=== PATIENT | female | born 1980 | race Caucasian/White ===

== ENCOUNTER 2017-03-12 17:26 | Emergency (ER) | payer MEDICAID ==
[~2017-03-12] VITALS: Ht 165.1 cm; Wt 103.1 kg
[2017-03-12] MEDS ORDERED: ONDANSETRON 2MG/ML, 2ML ONE (17:51)
[2017-03-12] MEDS ORDERED: ONDANSETRON 2MG/ML, 2ML IVPush ONE (18:00)
[2017-03-12] MEDS ORDERED: SODIUM CHLORIDE FLUSH 10ML SYR IVF ONE (18:00)
[2017-03-12] MEDS ORDERED: SODIUM CHLORIDE 0.9% 1,000ML IVBOLUS ONE (18:00)
[2017-03-12 18:21] LABS: BLOOD UREA NITROGEN 13 mg/dL (7-18)
[2017-03-12 20:03] VITALS: BP 113/60
== END 2017-03-12 20:05 | disposition home or self-care (01) ==
LOC: ED 19:27
DX: R55 Syncope and collapse (principal); E86.0 Dehydration; F17.200 Nicotine dependence, unspecified, uncomplicated
CPT/HCPCS: 36415; 80048; 81001; 82010; 82040; 82800; 83036; 83880; 84703; 85025; 87086; 93005; 96361; 96374; 99285; J2405; J7030

== ENCOUNTER 2017-11-03 22:25 | Emergency (ER) | payer MEDICAID ==
[~2017-11-03] VITALS: Ht 165.1 cm; Wt 107.2 kg
[2017-11-03 23:58] LABS: BASOPHILS # (AUTO) 0.04 x10^3/uL (0-0.1); BASOPHILS % (AUTO) 0 % (0-1); EOSINOPHILS % (AUTO) 3 % (1-7); LYMPHOCYTES # (AUTO) 3.95 x10^3/uL (1-3.4); LYMPHOCYTES % (AUTO) 37 % (22-44); MD NO; MEAN CORPUSCULAR HEMOGLOBIN 29.3 pg (27.0-34.8); MEAN CORPUSCULAR HGB CONC 33.9 g/dL (32.4-35.8); MEAN CORPUSCULAR VOLUME 86.5 fL (80-100); MEAN PLATELET VOLUME 9.2 fL (7.4-10.4); MONOCYTES # (AUTO) 0.69 x10^3/uL (0.2-0.8); MONOCYTES % (AUTO) 6 % (2-9); NEUTROPHILS # (AUTO) 5.75 x10^3/uL (1.8-6.8); NEUTROPHILS % (AUTO) 54 % (42-75); PLATELET COUNT 264 x10^3/uL (130-400); RED BLOOD COUNT 5.06 x10^6/uL (3.82-5.3); RED CELL DISTRIBUTION WIDTH 12.5 % (9.6-15.2)
[2017-11-04 00:10] LABS: ALBUMIN 3.6 g/dL (3.4-5.0); ANION GAP 6 mmol/L (5-15); CALCIUM 8.4 mg/dL (8.5-10.1); CHLORIDE 110 mmol/L (98-107)
[2017-11-04 00:15] LABS: CREATININE 0.81 mg/dL (0.55-1.02)
[2017-11-04 00:30] VITALS: BP 137/70
[2017-11-04 00:46] LABS: MICROSCOPIC INDICATED
[2017-11-04 00:54] LABS: CULTURE INDICATED? NO
[2017-11-04] MEDS ORDERED: ONDANSETRON ODT 4 MG ONE (01:14)
[2017-11-04] MEDS ORDERED: ONDANSETRON ODT 4 MG PO ONE (01:30)
== END 2017-11-04 01:46 | disposition home or self-care (01) ==
LOC: ED 23:59
DX: R10.30 Lower abdominal pain, unspecified (principal); I10 Essential (primary) hypertension; Z90.49 Acquired absence of other specified parts of digestive tract; F17.200 Nicotine dependence, unspecified, uncomplicated
CPT/HCPCS: 36415; 76830; 80048; 81001; 82040; 84703; 85025; 99285; Q0162

== ENCOUNTER 2018-05-17 09:38 | Emergency (ER) | payer MEDICAID ==
[~2018-05-17] VITALS: Ht 165.1 cm; Wt 113.1 kg
[2018-05-17] MEDS ORDERED: PREN1TAB28 PO (09:51)
[2018-05-17] MEDS ORDERED: LORA10TA62 PO (09:51)
[2018-05-17] MEDS ORDERED: OMEP20TA62 PO (09:51)
[2018-05-17] MEDS ORDERED: SODIUM CHLORIDE 0.9% 1,000 ML IV ONE (09:51)
[2018-05-17] MEDS ORDERED: ONDANSETRON ODT 4 MG ONE (09:57)
[2018-05-17] MEDS ORDERED: MAALOX/HYOSCYAMINE/LIDOCAINE 45 ML BTL ONE (09:57)
[2018-05-17] MEDS ORDERED: FAMOTIDINE 20 MG TABLET ONE (09:57)
[2018-05-17] MEDS ORDERED: FAMOTIDINE 20 MG/2 ML IVP ONE (10:00)
[2018-05-17] MEDS ORDERED: ONDANSETRON 2MG/ML, 2ML IVPush ONE (10:00)
[2018-05-17] MEDS ORDERED: SODIUM CHLORIDE 0.9% 1,000ML IVBOLUS ONE (10:00)
[2018-05-17] MEDS ORDERED: FAMOTIDINE 20 MG TABLET PO ONE (10:00)
[2018-05-17] MEDS ORDERED: MAALOX/HYOSCYAMINE/LIDOCAINE 45 ML BTL PO ONE (10:00)
[2018-05-17 10:20] LABS: MICROSCOPIC AUTO
[2018-05-17 10:25] LABS: CULTURE INDICATED? YES
[2018-05-17 10:38] LABS: BASOPHILS # (AUTO) 0.07 x10^3/uL (0-0.1); BASOPHILS % (AUTO) 1 % (0-1); EOSINOPHILS # (AUTO) 0.36 x10^3/uL (0-0.4); EOSINOPHILS % (AUTO) 3 % (1-7); LYMPHOCYTES # (AUTO) 3.52 x10^3/uL (1-3.4); LYMPHOCYTES % (AUTO) 30 % (22-44); MD NO; MEAN CORPUSCULAR HEMOGLOBIN 29.1 pg (27.0-34.8); MEAN CORPUSCULAR HGB CONC 34.2 g/dL (32.4-35.8); MEAN CORPUSCULAR VOLUME 85.1 fL (80-100); MEAN PLATELET VOLUME 9.3 fL (7.4-10.4); MONOCYTES # (AUTO) 0.54 x10^3/uL (0.2-0.8); MONOCYTES % (AUTO) 5 % (2-9); NEUTROPHILS # (AUTO) 7.45 x10^3/uL (1.8-6.8); NEUTROPHILS % (AUTO) 62 % (42-75); PLATELET COUNT 241 x10^3/uL (130-400); RED BLOOD COUNT 4.91 x10^6/uL (3.82-5.3); RED CELL DISTRIBUTION WIDTH 13.6 % (9.6-15.2)
[2018-05-17 10:50] LABS: ALANINE AMINOTRANSFERASE 67 U/L (12-78); ALBUMIN 3.4 g/dL (3.4-5.0); ANION GAP 9 mmol/L (5-15); CALCIUM 8.4 mg/dL (8.5-10.1); CHLORIDE 104 mmol/L (98-107); CREATININE 0.71 mg/dL (0.55-1.02)
[2018-05-17 10:55] LABS: ALKALINE PHOSPHATASE 78 U/L (45-117); BILIRUBIN,TOTAL 0.4 mg/dL (0.2-1.0); TOTAL PROTEIN 7.2 g/dL (6.4-8.2)
[2018-05-17 11:03] VITALS: BP 134/76
== END 2018-05-17 12:02 | disposition home or self-care (01) ==
LOC: ED 10:22
DX: K29.00 Acute gastritis without bleeding (principal); I10 Essential (primary) hypertension
CPT/HCPCS: 36415; 76700; 80053; 81001; 83690; 84703; 85025; 87086; 99285

== ENCOUNTER 2018-10-26 14:21 | Emergency (ER) | payer MEDICAID ==
[~2018-10-26] VITALS: Ht 162.6 cm; Wt 109.0 kg
[~2018-10-26 14:21] MED LIST: LORA10TA62 PO; OMEP20TA62 PO; PREN1TAB28 PO
[2018-10-26] MEDS ORDERED: FAMOTIDINE 20 MG/2 ML IVP ONE (15:00)
[2018-10-26] MEDS ORDERED: ONDANSETRON 2MG/ML, 2ML IVPush ONE (15:00)
[2018-10-26] MEDS ORDERED: SODIUM CHLORIDE FLUSH 10ML SYR IVF ONE (15:00)
[2018-10-26 15:07] LABS: BASOPHILS # (AUTO) 0.04 x10^3/uL (0-0.1); BASOPHILS % (AUTO) 0 % (0-1); EOSINOPHILS # (AUTO) 0.35 x10^3/uL (0-0.4); EOSINOPHILS % (AUTO) 3 % (1-7); LYMPHOCYTES # (AUTO) 3.21 x10^3/uL (1-3.4); LYMPHOCYTES % (AUTO) 30 % (22-44); MD NO; MEAN CORPUSCULAR HEMOGLOBIN 29.4 pg (27.0-34.8); MEAN CORPUSCULAR HGB CONC 33.6 g/dL (32.4-35.8); MEAN CORPUSCULAR VOLUME 87.4 fL (80-100); MEAN PLATELET VOLUME 9.4 fL (7.4-10.4); MONOCYTES # (AUTO) 0.45 x10^3/uL (0.2-0.8); MONOCYTES % (AUTO) 4 % (2-9); NEUTROPHILS # (AUTO) 6.54 x10^3/uL (1.8-6.8); NEUTROPHILS % (AUTO) 62 % (42-75); PLATELET COUNT 269 x10^3/uL (130-400); RED CELL DISTRIBUTION WIDTH 12.9 % (9.6-15.2)
[2018-10-26 15:12] LABS: ALANINE AMINOTRANSFERASE 37 U/L (12-78); ALBUMIN 3.7 g/dL (3.4-5.0); ANION GAP 6 mmol/L (5-15); CALCIUM 8.5 mg/dL (8.5-10.1); CHLORIDE 105 mmol/L (98-107)
[2018-10-26 15:17] LABS: ALKALINE PHOSPHATASE 90 U/L (45-117); BILIRUBIN,TOTAL 0.3 mg/dL (0.2-1.0); TOTAL PROTEIN 7.7 g/dL (6.4-8.2)
[2018-10-26 15:28] LABS: MICROSCOPIC NOT IND
[2018-10-26] MEDS ORDERED: MORPHINE SULFATE 4 MG/ML, 1ML IVPush ONE (15:30)
[2018-10-26] MEDS ORDERED: MORPHINE SULFATE 4 MG/ML, 1ML ONE (15:32)
[2018-10-26] MEDS ORDERED: ONDANSETRON 2MG/ML, 2ML ONE (15:32)
[2018-10-26] MEDS ORDERED: MAALOX/HYOSCYAMINE/LIDOCAINE 45 ML BTL ONE (15:32)
[2018-10-26] MEDS ORDERED: FAMOTIDINE 20 MG/2 ML ONE (15:33)
[2018-10-26 15:35] LABS: CULTURE INDICATED? NO
--- NOTE | 2018-10-26 15:39 | NUR ---
PT COMPLAINS OF RUQ PAIN X 2 DAYS. DENIES NAUSEA/VOMITING. STATES SHE HAS HAD DIARRHEA X 2 WEEKS. HAD THIS PAIN A COUPLE WEEKS AGO BUT DID NOT GET SEEN FOR IT. PT ALSO STATES THAT THE PAIN GETS WORSE AFTER EATING BUT CANNOT PINPOINT ANY RELATION TO WHAT FOOD CAUSES THE PAIN OR IF IT IS ALL FOOD. PLACE ON CONT. SPO2 AND BP MONITOR. VSS.
--- NOTE | 2018-10-26 15:42 | NUR ---
US AT BEDSIDE
--- NOTE | 2018-10-26 15:42 | NUR ---
PT MEDICATED PER EMAR
[2018-10-26] MEDS ORDERED: MAALOX/HYOSCYAMINE/LIDOCAINE 45 ML BTL PO ONE (16:00)
[2018-10-26 16:56] VITALS: BP 128/72
== END 2018-10-26 17:33 | disposition home or self-care (01) ==
LOC: ED 15:44
DX: K21.9 Gastro-esophageal reflux disease without esophagitis (principal); K29.70 Gastritis, unspecified, without bleeding; I10 Essential (primary) hypertension; Z90.89 Acquired absence of other organs
CPT/HCPCS: 36415; 76700; 80053; 81003; 83690; 84703; 85025; 96374; 96375; 99284; J2405; J3490

== ENCOUNTER 2018-11-24 10:49 | Emergency (ER) | payer MEDICAID ==
[~2018-11-24] VITALS: Ht 162.6 cm; Wt 108.9 kg
[2018-11-24 11:37] LABS: HCG UR SG 1.023 (1.003-1.030); MICROSCOPIC AUTO
--- NOTE | 2018-11-24 12:00 | NUR ---
HUMAN RESOURCES TEMP: PT TO ROOM FROM [facility]
[2018-11-24 12:04] LABS: BASOPHILS # (AUTO) 0.03 x10^3/uL (0-0.1); BASOPHILS % (AUTO) 0 % (0-1); EOSINOPHILS % (AUTO) 3 % (1-7); LYMPHOCYTES % (AUTO) 31 % (22-44); MD NO; MEAN CORPUSCULAR HEMOGLOBIN 28.9 pg (27.0-34.8); MEAN CORPUSCULAR VOLUME 87.8 fL (80-100); MEAN PLATELET VOLUME 9.6 fL (7.4-10.4); MONOCYTES # (AUTO) 0.58 x10^3/uL (0.2-0.8); MONOCYTES % (AUTO) 6 % (2-9); NEUTROPHILS % (AUTO) 60 % (42-75); PLATELET COUNT 263 x10^3/uL (130-400); RED BLOOD COUNT 5.09 x10^6/uL (3.82-5.3)
[2018-11-24 12:15] LABS: ALBUMIN 3.6 g/dL (3.4-5.0); ANION GAP 6 mmol/L (5-15); CALCIUM 8.3 mg/dL (8.5-10.1); CHLORIDE 110 mmol/L (98-107)
[2018-11-24 12:20] LABS: ALANINE AMINOTRANSFERASE 39 U/L (12-78); ALKALINE PHOSPHATASE 82 U/L (45-117); BILIRUBIN,TOTAL 0.3 mg/dL (0.2-1.0); CREATININE 0.66 mg/dL (0.55-1.02); TOTAL PROTEIN 7.2 g/dL (6.4-8.2)
[2018-11-24] MEDS ORDERED: HYDROcodone/APAP 5/325 TABLET PO ONE (12:30)
[2018-11-24] MEDS ORDERED: KETOROLAC 30 MG/1 ML IM ONE (12:30)
[2018-11-24] MEDS ORDERED: KETOROLAC 30 MG/1 ML ONE (12:41)
[2018-11-24 12:55] VITALS: BP 146/110
--- NOTE | 2018-11-24 12:56 | NUR ---
PT RESTING ON [facility]. MEDICATED PER MAR BY BREAK RN. KEARNEY.
--- NOTE | 2018-11-24 13:19 | NUR ---
PT CHART REVIEWED AND PLACED FOR RECHECK.
== END 2018-11-24 13:38 | disposition home or self-care (01) ==
LOC: ED 13:29
DX: R10.9 Unspecified abdominal pain (principal); K21.9 Gastro-esophageal reflux disease without esophagitis; I10 Essential (primary) hypertension
CPT/HCPCS: 36415; 74176; 80053; 81001; 81025; 83690; 85025; 96372; 99284; J1885

== ENCOUNTER 2018-12-20 13:58 | Emergency (ER) | payer MEDICAID ==
[~2018-12-20] VITALS: Ht 162.6 cm; Wt 106.5 kg
[2018-12-20 14:41] LABS: BASOPHILS # (AUTO) 0.02 x10^3/uL (0-0.1); BASOPHILS % (AUTO) 0 % (0-1); EOSINOPHILS # (AUTO) 0.16 x10^3/uL (0-0.4); EOSINOPHILS % (AUTO) 2 % (1-7); LYMPHOCYTES # (AUTO) 1.66 x10^3/uL (1-3.4); LYMPHOCYTES % (AUTO) 23 % (22-44); MD NO; MEAN CORPUSCULAR HEMOGLOBIN 29.4 pg (27.0-34.8); MEAN CORPUSCULAR HGB CONC 33.8 g/dL (32.4-35.8); MEAN PLATELET VOLUME 9.3 fL (7.4-10.4); MONOCYTES # (AUTO) 0.58 x10^3/uL (0.2-0.8); MONOCYTES % (AUTO) 8 % (2-9); NEUTROPHILS # (AUTO) 4.78 x10^3/uL (1.8-6.8); NEUTROPHILS % (AUTO) 66 % (42-75); PLATELET COUNT 228 x10^3/uL (130-400); RED BLOOD COUNT 5.31 x10^6/uL (3.82-5.3)
[2018-12-20 14:49] LABS: ALANINE AMINOTRANSFERASE 33 U/L (12-78); ALBUMIN 3.6 g/dL (3.4-5.0); ANION GAP 6 mmol/L (5-15); CALCIUM 7.9 mg/dL (8.5-10.1); CHLORIDE 111 mmol/L (98-107)
[2018-12-20 14:54] LABS: ALKALINE PHOSPHATASE 90 U/L (45-117); BILIRUBIN,TOTAL 0.4 mg/dL (0.2-1.0); TOTAL PROTEIN 7.5 g/dL (6.4-8.2)
--- NOTE | 2018-12-20 16:42 | NUR ---
PT TO ROOM FROM LOBBY
[2018-12-20] MEDS ORDERED: ONDANSETRON ODT 4 MG PO ONE (17:30)
[2018-12-20] MEDS ORDERED: MAALOX/HYOSCYAMINE/LIDOCAINE 45 ML BTL PO ONE (17:30)
--- NOTE | 2018-12-20 17:31 | NUR ---
ASSUMED CARE OF PT. PT PRESENTS TO ED FOR EPIGASTRIC PAIN WITH N/V TODAY. STATES LOTS OF ACID REFULX TODAY. PT SEEN IN PIT. LABS RESULTED. PT MEDICATED PER NOV. RIGHTS VERIFIED PRIOR. 3P'S ADDRESSED. MILD AMOUNT OF DISTRESS AND DISCOMFORT NOTED. BREATHING REGULAR AND UNLABORED. POC DISCUSSED. WILL CONTINUE TO MONITOR.
--- NOTE | 2018-12-20 18:25 | NUR ---
PT AMBULATED TO D/C WITH STEADY GAIT.
[2018-12-20 18:43] VITALS: BP 137/67
== END 2018-12-20 18:44 | disposition home or self-care (01) ==
LOC: ED 17:58
DX: K52.9 Noninfective gastroenteritis and colitis, unspecified (principal)
CPT/HCPCS: 36415; 80053; 83690; 84703; 85025; 99283

== ENCOUNTER 2019-01-07 09:34 | Emergency (ER) | payer MEDICAID ==
[~2019-01-07] VITALS: Ht 162.6 cm; Wt 107.0 kg
[2019-01-07 09:39] VITALS: BP 143/99
== END 2019-01-07 10:26 | disposition home or self-care (01) ==
LOC: ED 09:51
DX: L23.9 Allergic contact dermatitis, unspecified cause (principal); F17.200 Nicotine dependence, unspecified, uncomplicated; K21.9 Gastro-esophageal reflux disease without esophagitis; I10 Essential (primary) hypertension
CPT/HCPCS: 99283

== ENCOUNTER 2019-09-08 11:23 | Emergency (ER) | payer MEDICAID ==
[~2019-09-08] VITALS: Ht 162.6 cm; Wt 109.5 kg
--- NOTE | 2019-09-08 12:25 | NUR ---
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
--- NOTE | 2019-09-08 12:43 | NUR ---
PT C/O LUQ, RUQ, AND BILATERAL FLANK PAIN 04/30. DENIES ANY URINARY S/S, BUT STATES THAT SHE WAS JUST TRAVELING FOR THE PAST FEW DAYS AND HAS BEEN HOLDING HER URINE FOR LONG PERIODS OF TIME, AND HAS NOT BEEN DRINKING MANY FLUIDS. STATES THAT THE PAIN HAS DEVELOPED SINCE THE TRIP FINISHED. DENIES ANY FEVER, N/V/D, PAIN WITH URINATION, OR OTHER CONCERNS. ATTACHED TO MONITORS. URINE COLELCTED AND SENT. CALL LIGHT IN REACH. PT DENIES ANY FURTHER NEEDS OR CONCERNS AT THIS TIME.
[2019-09-08] MEDS ORDERED: PHENAZOPYRIDINE 200 MG TABLET PO ONE (13:00)
[2019-09-08] MEDS ORDERED: PHENAZOPYRIDINE 200 MG TABLET ONE (13:07)
[2019-09-08 13:13] LABS: BASOPHILS # (AUTO) 0.03 x10^3/uL (0-0.1); BASOPHILS % (AUTO) 0 % (0-1); EOSINOPHILS # (AUTO) 0.25 x10^3/uL (0-0.4); EOSINOPHILS % (AUTO) 3 % (1-7); LYMPHOCYTES # (AUTO) 2.43 x10^3/uL (1-3.4); LYMPHOCYTES % (AUTO) 29 % (22-44); MD NO; MEAN CORPUSCULAR HEMOGLOBIN 29.7 pg (27.0-34.8); MEAN CORPUSCULAR HGB CONC 33.3 g/dL (32.4-35.8); MEAN CORPUSCULAR VOLUME 89.3 fL (80-100); MEAN PLATELET VOLUME 9.3 fL (7.4-10.4); MONOCYTES # (AUTO) 0.34 x10^3/uL (0.2-0.8); MONOCYTES % (AUTO) 4 % (2-9); NEUTROPHILS # (AUTO) 5.48 x10^3/uL (1.8-6.8); NEUTROPHILS % (AUTO) 64 % (42-75); PLATELET COUNT 257 x10^3/uL (130-400); RED BLOOD COUNT 5.08 x10^6/uL (3.82-5.3); RED CELL DISTRIBUTION WIDTH 13.1 % (9.6-15.2)
[2019-09-08 13:21] LABS: MICROSCOPIC AUTO
[2019-09-08 13:23] LABS: ALANINE AMINOTRANSFERASE 40 U/L (12-78); ALBUMIN 3.6 g/dL (3.4-5.0); ANION GAP 7 mmol/L (5-15); CALCIUM 8.8 mg/dL (8.5-10.1); CHLORIDE 107 mmol/L (98-107)
[2019-09-08 13:23] LABS: CULTURE INDICATED? YES
[2019-09-08 13:26] LABS: ALKALINE PHOSPHATASE 78 U/L (45-117); BILIRUBIN,TOTAL 0.4 mg/dL (0.2-1.0); CREATININE 0.66 mg/dL (0.55-1.02); TOTAL PROTEIN 7.3 g/dL (6.4-8.2)
--- NOTE | 2019-09-08 14:47 | NUR ---
PT RETURNED FROM IMAGING AT THIS TIME. DENIES ANY CURRENT NEEDS OR CONCERNS. CALL LIGHT IN REACH.
--- NOTE | 2019-09-08 15:06 | NUR ---
REPORT RECEIVED FROM TAMMI VENTURA. PLAN OF CARE DISCUSSED. PAITIENT COMPLAINING OF 10/10 PAIN. WILL DISCUSS WITH MD. CALL LIGHT IN REACH, FAMILY IN ROOM.
[2019-09-08 15:07] VITALS: BP 137/84
== END 2019-09-08 15:45 | disposition home or self-care (01) ==
LOC: ED 15:13
DX: R10.84 Generalized abdominal pain (principal); K59.00 Constipation, unspecified; R93.41 Abnormal radiologic findings on diagnostic imaging of renal pelvis, ureter, or bladder; K29.00 Acute gastritis without bleeding; I10 Essential (primary) hypertension
CPT/HCPCS: 36415; 74021; 76830; 80053; 81001; 83690; 84703; 85025; 87086; 99284

== ENCOUNTER 2019-09-15 20:09 | Emergency (ER) | payer MEDICAID ==
[~2019-09-15] VITALS: Ht 162.6 cm; Wt 110.8 kg
[2019-09-15 20:11] VITALS: BP 165/104
[2019-09-15] MEDS ORDERED: IBUPROFEN 200 MG TABLET ONE (20:38)
[2019-09-15] MEDS ORDERED: IBUPROFEN 200 MG TABLET PO ONE (21:00)
[2019-09-15 21:14] LABS: RAPID INFLUENZA A Negative (Negative); RAPID INFLUENZA B Negative (Negative)
== END 2019-09-15 21:37 | disposition home or self-care (01) ==
LOC: ED 21:28
DX: H66.002 Acute suppurative otitis media without spontaneous rupture of ear drum, left ear (principal); J18.0 Bronchopneumonia, unspecified organism; K21.9 Gastro-esophageal reflux disease without esophagitis; I10 Essential (primary) hypertension
CPT/HCPCS: 71046; 87400; 99284

== ENCOUNTER 2019-11-22 14:23 | Emergency (ER) | payer MEDICAID ==
[~2019-11-22] VITALS: Ht 162.6 cm; Wt 111.7 kg
[2019-11-22 15:24] VITALS: BP 125/77
--- NOTE | 2019-11-22 15:29 | NUR ---
Pt resting on gureny connected to NIBP cuff and continous pulse ox monitor. Call light within reach. NADN. No needs expressed. EDAPRN at bedside.
[2019-11-22] MEDS ORDERED: DEXAMETHASONE 4 MG TABLET ONE (15:57)
[2019-11-22] MEDS ORDERED: DEXAMETHASONE 4 MG TABLET PO ONE (16:00)
--- NOTE | 2019-11-22 16:04 | NUR ---
Patient given discharge instructions and they have confirmed that they understand the instructions. Patient ambulatory with steady gait. Pt left with Rx, D/C paperwork, and all personal belongings. NADN. No needs requested.
== END 2019-11-22 16:06 | disposition home or self-care (01) ==
LOC: ED 16:00
DX: J00 Acute nasopharyngitis [common cold] (principal); J30.2 Other seasonal allergic rhinitis; B34.9 Viral infection, unspecified; I10 Essential (primary) hypertension; K21.9 Gastro-esophageal reflux disease without esophagitis; Z90.49 Acquired absence of other specified parts of digestive tract
CPT/HCPCS: 99282; 99283

== ENCOUNTER 2021-01-25 12:05 | Emergency (ER) | payer MEDICAID ==
[~2021-01-25] VITALS: Ht 162.6 cm; Wt 114.0 kg
[~2021-01-25 12:05] MED LIST changes: +LORA-59 PO; -LORA10TA62 PO
[2021-01-25] MEDS ORDERED: ONDANSETRON 2MG/ML, 2ML IVPush ONE (12:30)
[2021-01-25] MEDS ORDERED: FAMOTIDINE 20 MG/2 ML IVPush ONE (12:30)
[2021-01-25] MEDS ORDERED: SODIUM CHLORIDE FLUSH 10ML SYR IVF ONE (12:30)
[2021-01-25] MEDS ORDERED: MAALOX/HYOSCYAMINE/LIDOCAINE 45 ML BTL PO ONE (12:30)
--- NOTE | 2021-01-25 12:32 | NUR ---
EKG IN TRIAGE
--- NOTE | 2021-01-25 13:35 | NUR ---
DINNER COOK: PT TO ROOM FROM LOBBY
[2021-01-25 13:58] LABS: BASOPHILS % (AUTO) 1 % (0-1); EOSINOPHILS % (AUTO) 2 % (1-7); LYMPHOCYTES % (AUTO) 30 % (22-44); MEAN CORPUSCULAR HEMOGLOBIN 29.1 pg (27.0-34.8); MEAN PLATELET VOLUME 9.2 fL (7.4-10.4); MONOCYTES % (AUTO) 7 % (2-9); NEUTROPHILS % (AUTO) 60 % (42-75); PLATELET COUNT 250 x10^3/uL (130-400); RED BLOOD COUNT 5.04 x10^6/uL (3.82-5.3); RED CELL DISTRIBUTION WIDTH 13.1 % (9.6-15.2)
[2021-01-25 13:59] LABS: MD NO
[2021-01-25] MEDS ORDERED: MAALOX/HYOSCYAMINE/LIDOCAINE 45 ML BTL ONE (14:10)
[2021-01-25] MEDS ORDERED: ONDANSETRON 2MG/ML, 2ML ONE (14:10)
[2021-01-25] MEDS ORDERED: FAMOTIDINE 20 MG/2 ML ONE (14:10)
[2021-01-25 14:11] LABS: ALBUMIN 3.7 g/dL (3.4-5.0); CALCIUM 8.8 mg/dL (8.5-10.1)
[2021-01-25 14:17] LABS: ALANINE AMINOTRANSFERASE 54 U/L (12-78); ALKALINE PHOSPHATASE 80 U/L (45-117); BILIRUBIN,TOTAL 0.4 mg/dL (0.2-1.0); CREATININE 0.71 mg/dL (0.55-1.02); TOTAL PROTEIN 7.9 g/dL (6.4-8.2); TROPONIN I < 0.015 ng/mL (0.000-0.045)
[2021-01-25 14:21] LABS: ANION GAP 9 mmol/L (5-15); CHLORIDE 107 mmol/L (98-107)
--- NOTE | 2021-01-25 14:27 | NUR ---
ASSUMED CARE OF PATIENT. PATIENT REPORTS ALL OVER ABD PAIN THAT CASTILLO. VS STABLE. NO ACUTE DISTRESS NOTED. PT SEEN BY DR LOPES. CALL LIGHT IN PLACE. WILL CONTINUE TO MONITOR.
--- NOTE | 2021-01-25 15:07 | NUR ---
PT RESTING IN ROOM. VS STABLE. NO ACUTE DISTRESS NOTED. CALL LIGHT IN PLACE. WILL CONTINUE TO MONITOR.
--- NOTE | 2021-01-25 15:17 | NUR ---
DR LOPES IN ROOM UPDATING PATIENT
[2021-01-25 15:33] VITALS: BP 154/80
== END 2021-01-25 15:36 | disposition home or self-care (01) ==
LOC: ED 14:10
DX: K29.00 Acute gastritis without bleeding (principal); I10 Essential (primary) hypertension; K21.9 Gastro-esophageal reflux disease without esophagitis
CPT/HCPCS: 36415; 71045; 76700; 80053; 83690; 84484; 84703; 85025; 93005; 96374; 96375; 99285; J2405

== ENCOUNTER 2021-04-03 10:42 | Emergency (ER) | payer MEDICAID ==
[~2021-04-03] VITALS: Ht 162.6 cm; Wt 110.7 kg
--- NOTE | 2021-04-03 10:45 | NUR ---
NO ANSWER TO TRIAGE FROM LOBBY.
[2021-04-03 11:30] LABS: MICROSCOPIC NOT IND
--- NOTE | 2021-04-03 11:57 | NUR ---
PATIENT WALKED BACK FROM [facility] WITH CHIEF C/O ABD PAIN X3 MONTHS. PATIENT REPORTS PAIN IS ACROSS UPPER ABD AND SPREADS TO HER BACK, HAS BEEN SEEN PREVIOUSLY MULTIPLE TIMES FOR THE SAME. PATIENT STATES SHE HAS DIARRHEA, DENIES N/V OR FEVER. NADN, CONNECTED TO MONITOR, VSS, CALL LIGHT WITHIN REACH.
[2021-04-03 12:02] VITALS: BP 144/100
--- NOTE | 2021-04-03 13:01 | NUR ---
Patient given discharge instructions prescription and they have confirmed that they understand the instructions. Patient ambulatory with steady gait. NAD, all questions answered appropriately, denies additional needs at this time. No personal belongings left in room after discharge.
== END 2021-04-03 13:02 | disposition home or self-care (01) ==
LOC: ED 12:40
DX: R10.84 Generalized abdominal pain (principal); G89.29 Other chronic pain; R19.7 Diarrhea, unspecified; K59.00 Constipation, unspecified; I10 Essential (primary) hypertension; K21.9 Gastro-esophageal reflux disease without esophagitis
CPT/HCPCS: 81003; 99283